=== PATIENT | male | born 1960 | race Caucasian/White ===

== ENCOUNTER 2023-10-11 10:38 | Outpatient (CLI) | payer BC, SELFPAY | END 2023-10-11 10:39 | disposition home or self-care (01) | PROVIDERS: PCP Internal Medicine; Visit Provider Internal Medicine | DX: I10 Essential (primary) hypertension (principal); R35.0 Frequency of micturition; Z12.5 Encounter for screening for malignant neoplasm of prostate; Z13.6 Encounter for screening for cardiovascular disorders | CPT/HCPCS: 80053; 80061; 84403; G0103 ==

== ENCOUNTER 2024-01-02 14:01 | Outpatient (CLI) | payer BC, SELFPAY | END 2024-01-02 14:02 | disposition home or self-care (01) | PROVIDERS: PCP Internal Medicine; Visit Provider Internal Medicine | DX: R07.9 Chest pain, unspecified (principal); I10 Essential (primary) hypertension | CPT/HCPCS: 80048; 84484 ==

== ENCOUNTER 2024-01-24 12:44 | Outpatient (CLI) | payer BC, SELFPAY ==
[2024-01-24] MEDS: PERFLUTREN LIPID MICROSPHERES 2 ML VIAL IV (13:29)
[2024-01-24 14:29] VITALS: BP 131/79; PULSE 90
--- NOTE | 2024-01-24 14:35 | W.PM.STED ---
Stress Test Note Date Date of test: 01/24/24 Providers Primary care provider: Messi Hanson Stress test physician: Claudio Davis Stress Test Note Stress test ordered: Stress Echo Indication for test: Chest Pain Stress test medicine: Definity Results discussion: Patient is a very nice 63-year-old gentleman who presents for the above test after discussion the risks benefits side effects he would like to proceed .pretest EKG shows normal sinus rhythm, there is no acute changes noted. Slightly widened QRS appears to anterior fascicular block. Standard Kelvin protocol is employed 8 minutes 2nd, achieved a metabolic equivalent of 9.7 Mets with a maximum heart rate of 141, which is 106% of the target. Maximum blood pressure was 154/74. Test is terminated because of fulfillment of protocol, and fatigue. Patient did not have any chest pain or shortness of breath. Or any other subjective symptoms, review of the tracings showed no evidence of any significant EKG changes suggestive of ischemia there is no dysrhythmias. Impression: Negative electrographic portion of stress echo Follow up suggested: Await echo images clinical correlation this will be needed. Patient recovered normally. And will be discharged once criteria is fullfilled. There were no complications
== END 2024-01-24 12:45 | disposition home or self-care (01) ==
LOC: STRESS 12:46
PROVIDERS: PCP Internal Medicine; Visit Provider Family Medicine
DX: R07.9 Chest pain, unspecified (principal)
CPT/HCPCS: 93016; 93325; 93351; Q9957

== ENCOUNTER 2025-01-23 10:34 | Outpatient (CLI) | payer BC, SELFPAY | END 2025-01-23 10:35 | disposition home or self-care (01) | PROVIDERS: PCP Internal Medicine; Visit Provider Internal Medicine | DX: I10 Essential (primary) hypertension (principal); Z12.5 Encounter for screening for malignant neoplasm of prostate | CPT/HCPCS: 80053; 80061; G0103 ==